=== PATIENT | male | born 1985 | race American Indian/Alaskan Native ===

== ENCOUNTER 2021-11-26 12:47 | Emergency (ER) | payer MEDICAID ==
[2021-11-26] MEDS ORDERED: ONDANSETRON 4 MG/2 ML INJ IV ONE (13:16)
[2021-11-26] MEDS ORDERED: MORPHINE 4 MG/1 ML INJ IV ONE (13:16)
[2021-11-26] MEDS ORDERED: SODIUM CHLORIDE 0.9% 1000 ML 1,000 ML IV ONE (13:16)
--- NOTE | 2021-11-26 13:22 | Emergency Department Report ---
ED Abdominal Pain HPI - General Chief Complaint: Nausea/Vomiting/Diarrhea Stated Complaint: VOMITING Time Seen by Provider: 11/26/21 13:13 Source: patient Mode of arrival: Ambulatory Limitations: No Limitations - History of Present Illness Initial Comments: Patient is 36 years old male with no significant past medical history. Patient had history of appendicitis with appendectomy 1998. Patient brought to the emergency room for evaluation of diffuse abdominal pain, nausea, vomiting and watery diarrhea for the last 2 days. Patient found to be diaphoretic and actively vomiting in triage. Patient denies any fever or chills. He also denies any chest pain or shortness of breath. MD Complaint: abdominal pain -: days(s) (2) Location: diffuse Radiation: none Migration to: no migration Severity scale (0 -10): 6 Quality: cramping Consistency: intermittent Associated Symptoms: nausea, vomiting, diarrhea - Related Data Allergies Allergy/AdvReac Type Severity Reaction Status Date / Time No Known Allergies Allergy Unverified 11/26/21 13:01 ED Review of Systems ROS: Stated complaint: VOMITING Other details as noted in HPI Comment: All other systems reviewed and negative Constitutional: denies: chills, fever ENT: congestion Cardiovascular: denies: chest pain, palpitations Gastrointestinal: abdominal pain, nausea, vomiting, diarrhea Musculoskeletal: denies: back pain Neurological: denies: headache, weakness, numbness, paresthesias, confusion ED Physical Exam - General Limitations: No Limitations General appearance: alert, other (Actively vomiting.) - Head Head exam: Present: atraumatic - Eye Eye exam: Present: normal appearance - ENT ENT exam: Present: mucous membranes dry - Neck Neck exam: Present: normal inspection, full ROM. Absent: tenderness, meningismus - Respiratory Respiratory exam: Present: normal lung sounds bilaterally - Cardiovascular Cardiovascular Exam: Present: regular rate, normal rhythm, normal heart sounds - GI/Abdominal GI/Abdominal exam: Present: soft, normal bowel sounds. Absent: distended, tenderness, guarding, rebound, rigid, organomegaly, mass, bruit, pulsatile mass, hernia - Extremities Exam Extremities exam: Present: normal inspection, full ROM, normal capillary refill. Absent: tenderness - Back Exam Back exam: Present: normal inspection, full ROM. Absent: CVA tenderness (R), CVA tenderness (L) - Neurological Exam Neurological exam: Present: alert, oriented X3, CN II-XII intact - Psychiatric Psychiatric exam: Present: normal mood - Skin Skin exam: Present: warm, dry, intact ED Course Vital Signs 11/26/21 11/26/21 11/26/21 13:03 13:04 13:16 Temperature 97.9 F Pulse Rate 85 69 Respiratory 24 16 Rate Blood Pressure Blood Pressure 134/96 [Right] O2 Sat by Pulse 100 98 95 Oximetry 11/26/21 11/26/21 11/26/21 13:17 13:31 13:45 Temperature Pulse Rate 75 83 73 Respiratory 18 30 H 18 Rate Blood Pressure 135/99 138/83 Blood Pressure 138/85 [Right] O2 Sat by Pulse 98 97 97 Oximetry 11/26/21 11/26/21 11/26/21 14:00 14:01 14:15 Temperature Pulse Rate 75 76 77 Respiratory 18 17 20 Rate Blood Pressure 134/87 137/87 Blood Pressure 134/87 [Right] O2 Sat by Pulse 99 98 99 Oximetry ED Medical Decision Making - Lab Data Result diagrams: 11/26/21 13:23 11/26/21 13:23 - Radiology Data Radiology results: report reviewed - Medical Decision Making Patient is 36 years old male with no significant past medical history. Patient had history of appendicitis with appendectomy 1998. Patient brought to the emergency room for evaluation of diffuse abdominal pain, nausea, vomiting and watery diarrhea for the last 2 days. Patient found to be diaphoretic and actively vomiting in triage. Patient denies any fever or chills. He also denies any chest pain or shortness of breath. Patient received morphine, Zofran and normal saline. Labs reviewed and showed leukocytosis of 17,000. Patient received Zosyn. CT abdomen and pelvis with IV contrast showed multiple fluid-filled bowel loops most likely secondary to diarrhea. Patient stated that he is feeling much better. No nausea or vomiting observed since then. Patient given prescription for Flagyl, ciprofloxacin, Zofran and Bentyl and advised to follow-up with his primary doctor in the next 2 to 3 days and to return to the ER if he develop any new symptoms. Critical care attestation.: If time is entered above; I have spent that time in minutes in the direct care of this critically ill patient, excluding procedure time. ED Disposition Clinical Impression: Acute abdominal pain, Acute nausea with nonbilious vomiting, Acute diarrhea Disposition: HOME / SELF CARE / HOMELESS Is pt being admited?: No Condition: Stable Instructions: Abdominal Pain, Adult, [id number], Nausea and Vomiting, Adult, Diarrhea, Adult, [id number] Referrals: PRIMARY CARE, [Primary Care Provider] - 3-5 Days
[2021-11-26 13:53] LABS: Basophils # (Auto) 0.1 K/mm3 (0.0-0.1); Basophils % (Auto) 0.7 % (0.0-1.8); Eosinophils # (Auto) 0.1 K/mm3 (0.0-0.4); Eosinophils % (Auto) 0.8 % (0.0-4.3); Hematocrit 45.6 % (35.5-45.6); Hemoglobin 14.7 gm/dl (11.8-15.2); Lymphocytes # (Auto) 1.6 K/mm3 (1.2-5.4); Lymphocytes % (Auto) 9.1 % (13.4-35.0); Mean Corpuscular HGB Conc 32 % (32-34); Mean Corpuscular Volume 88 fl (84-94); Monocytes # (Auto) 0.7 K/mm3 (0.0-0.8); Platelet Count 316 K/mm3 (140-440); Red Blood Count 5.16 M/mm3 (3.65-5.03); Red Cell Distribution Width 14.1 % (13.2-15.2)
[2021-11-26] MEDS ORDERED: PIPERACILLIN/TAZOBACTAM 3.375 3.375 GM/50 ML BAG IV ONE (13:59)
[2021-11-26 14:08] LABS: Alanine Aminotransferase 69 units/L (7-56); Albumin 4.6 g/dL (3.9-5); BUN/Creatinine Ratio 18; Blood Urea Nitrogen 18 mg/dL (9-20); Calcium 9.1 mg/dL (8.4-10.2); Hemolysis Index 16
[2021-11-26 14:09] LABS: Bilirubin,Direct < 0.2 mg/dL (0-0.2)
[2021-11-26 16:37] LABS: Bilirubin,Urine NEG (Negative); Blood,Urine NEG (Negative); Color,Urine Straw (Yellow); Mucus,Urine FEW /HPF; Protein,Urine <15 mg/dL mg/dL (Negative); Urobilinogen,Urine < 2.0 mg/dL (<2.0)
[2021-11-26 16:39] LABS: RBC,Urine < 1.0 /HPF (0.0-6.0)
--- NOTE | 2021-11-26 16:44 | Cat Scan Report ---
CT ABDOMEN AND PELVIS WITH CONTRAST INDICATION / CLINICAL INFORMATION: abdominal pain 100ML OMNI 300. TECHNIQUE: Axial CT images were obtained through the abdomen and pelvis after 100 cc of Omnipaque [address] scans at this location are performed using CT dose reduction for ALARA by means of automated exposure control. COMPARISON: None available. FINDINGS: LOWER CHEST: No significant abnormality. AORTA / ARTERIES: No significant abnormality. IVC / VEINS: No significant abnormality. LYMPH NODES: No significant adenopathy. COLON: There are several fluid-filled, nondistended loops of large bowel throughout the colon. APPENDIX: Not visualized. STOMACH / SMALL BOWEL: Multiple fluid filled, nondistended loops small bowel throughout the abdomen. PERITONEUM: No free fluid. No free air. No fluid collection. LIVER: No significant abnormality. GALLBLADDER: No significant abnormality. BILE DUCTS: No significant abnormality. PANCREAS: No significant abnormality. SPLEEN: No significant abnormality. ADRENALS: No significant abnormality. RIGHT KIDNEY / URETER: No significant abnormality. LEFT KIDNEY / URETER: No significant abnormality. URINARY BLADDER: No significant abnormality. REPRODUCTIVE ORGANS: No significant abnormality. SKELETAL SYSTEM: No significant abnormality. ADDITIONAL FINDINGS: None. IMPRESSION: 1. Multiple fluid-filled, nondilated loops of colon and small bowel suggesting an infectious inflamma tory enteritis/colitis. Signer Name: Yovani Proctor DO Signed: 11/26/2021 4:39 PM Workstation Name: [id number]
[2021-11-26 17:03] VITALS: BP 143/82
== END 2021-11-26 17:04 | disposition home or self-care (01) ==
LOC: ED 12:47
DX: R10.9 Unspecified abdominal pain (principal); R11.2 Nausea with vomiting, unspecified; R19.7 Diarrhea, unspecified
CPT/HCPCS: 36415; 74177; 80048; 80076; 81001; 83690; 85025; 87040; 96361; 96365; 96366; 96375; 99284; J2270; J2405; J2543; J7030; Q9967; Q0162